=== PATIENT | male | born 1965 | race Hispanic/Latino ===

== ENCOUNTER → 2017-03-02 | Outpatient (CLI) | payer OTHER ==
[~2017-03-02] VITALS: Ht 175.3 cm; Wt 90.7 kg
[~2017-03-02] MED LIST: CLARITIN10 M3 PO; METFORMIN HCL500 MG PO; TESSALON PERLE100 MG PO; ZITHROMAX250 MG PO
[2017-03-02 12:33] LABS: POINT-OF-CARE METER ID UU14107333
[2017-03-02 13:04] LABS: ANION GAP 9 MEQ/L (2-14); CHLORIDE 104 MEQ/L (99-109); GFR ESTIMATE (CALCULATED) > 59 mL/min/; GLUCOSE 135 mg/dL (70-99); SAMPLE HEMOLYSIS CHECK 0; SAMPLE ICTERIC CHECK 0; SAMPLE LIPEMIA CHECK 0; SODIUM 139 MEQ/L (136-147); UREA NITROGEN (BUN) 13 mg/dL (9-23)
== END | disposition home or self-care (01) ==
LOC: AMB 12:04
PROVIDERS: Internal Medicine
PROC: 0DJD8ZZ Inspection of Lower Intestinal Tract, Via Natural or Artificial Opening Endoscopic (ICD-10-PCS; principal; 2017-03-02)
DX: Z12.11 Encounter for screening for malignant neoplasm of colon (principal); Z80.0 Family history of malignant neoplasm of digestive organs; E11.65 Type 2 diabetes mellitus with hyperglycemia
CPT/HCPCS: 80048; 82948; 93005; J2250